=== PATIENT | male | born 1990 | race Caucasian/White ===

== ENCOUNTER 2021-10-30 18:30 | Emergency (ER) | payer SELFPAY ==
--- NOTE | 2021-10-30 20:47 | XRay Report ---
CHEST 2 VIEWS INDICATION / CLINICAL INFORMATION: SOB. COMPARISON: None available. FINDINGS: SUPPORT DEVICES: None. HEART / MEDIASTINUM: No significant abnormality. LUNGS / PLEURA: No significant pulmonary or pleural abnormality. No pneumothorax. ADDITIONAL FINDINGS: No significant additional findings. IMPRESSION: 1. No acute findings. Signer Name: Vaibhav Delatorre MD Signed: 10/30/2021 8:43 PM Workstation Name: [id number]
[2021-10-30 21:04] LABS: Basophils # (Auto) 0.3 K/mm3 (0.0-0.1); Basophils % (Auto) 2.9 % (0.0-1.8); Eosinophils # (Auto) 0.3 K/mm3 (0.0-0.4); Eosinophils % (Auto) 2.9 % (0.0-4.3); Hematocrit 42.5 % (35.5-45.6); Lymphocytes # (Auto) 2.8 K/mm3 (1.2-5.4); Lymphocytes % (Auto) 26.5 % (13.4-35.0); Mean Corpuscular HGB Conc 33 % (32-34); Mean Corpuscular Volume 83 fl (84-94); Monocytes # (Auto) 0.9 K/mm3 (0.0-0.8); Monocytes % (Auto) 8.1 % (0.0-7.3); Platelet Count 338 K/mm3 (140-440); Red Blood Count 5.13 M/mm3 (3.65-5.03); Red Cell Distribution Width 15.3 % (13.2-15.2)
[2021-10-30 21:24] LABS: Alanine Aminotransferase 24 units/L (7-56); BUN/Creatinine Ratio 17; Blood Urea Nitrogen 15 mg/dL (9-20); Calcium 9.5 mg/dL (8.4-10.2); Hemolysis Index 33
[2021-10-30] MEDS ORDERED: methylPREDNISolone Sod Succinate 125 MG/2 ML INJ IM ONE (21:24)
[2021-10-30] MEDS ORDERED: IPRATROPIUM/ALBUTEROL SULFATE 3 ML AMPUL.NEB IH ONE (21:24)
[2021-10-30] MEDS ORDERED: predniSONE 20 MG TAB PO ONE (22:17)
--- NOTE | 2021-10-30 22:31 | Emergency Department Report ---
- General Chief Complaint: Adult Asthma Stated Complaint: ASTHMA Source: patient Mode of arrival: Ambulatory Limitations: No Limitations - History of Present Illness Initial Comments: Patient is a 31-year-old male with a history of asthma who presented to the ED with complaint of acute onset persistent nasal and sinus congestion, persistent frontal sinus pressure, persistent dry cough, shortness of breath and wheezing for the last 2 weeks intermittently despite using his inhaler at home. Patient also states that in the last 12 hours his symptoms have worsened and decided come to the ED for evaluation. Patient denies chest pain, dizziness, syncope, fever, chills, nausea and vomiting or diarrhea and abdominal pain and sore throat. MD Complaint: cough, rhinorrhea, nasal congestion, other (Wheezing and shortness of breath) -: Sudden, week(s) (2) Severity: moderate Severity scale (0 -10): 3 Quality: dull, aching Consistency: intermittent Improves With: nothing Worsens With: activity, deep breaths Associated Symptoms: denies other symptoms, headache, rhinorrhea, nasal c ongestion, cough, shortness of breath. denies: fever, chills, myalgias, diaphoresis, sore throat, stiff neck, chest pain, abdominal pain, nausea, vomiting, diarrhea, dysuria, rash, right sweats, weight loss, epistaxis, hoarseness, ear pain Treatments Prior to Arrival: none - Related Data Previous Rx's Medication Instructions Recorded Last Taken Type Albuterol Sulfate [Proventil Hfa] 1 - 2 puff IH Q6H PRN #1 hfa.aer.ad 10/30/21 Unknown Rx Benzonatate [Tessalon Perles] 100 mg PO Q8HR #30 capsule 10/30/21 Unknown Rx Cetirizine HCl [Zyrtec 10mg tab] 10 mg PO DAILY #30 tablet 10/30/21 Unknown Rx Montelukast [Singulair] 10 mg PO QPM #30 tablet 10/30/21 Unknown Rx Prednisone [predniSONE 10 mg 10 mg PO .TAPER #1 tab.ds.pk 10/30/21 Unknown Rx (6-Day Pack, 21 Tabs)] Allergies Allergy/AdvReac Type Severity Reaction Status Date / Time FLU SHOT Allergy Shortness Uncoded 10/30/21 18:31 of Breath ED Review of Systems ROS: Stated complaint: ASTHMA Other details as noted in HPI Constitutional: denies: chills, fever Eyes: denies: eye pain, eye discharge, vision change ENT: congestion. denies: ear pain, throat pain Respiratory: cough, shortness of breath, wheezing Cardiovascular: denies: chest pain, palpitations, dyspnea on exertion, orthopnea, edema, syncope, paroxysmal nocturnal dyspnea Endocrine: no symptoms reported Gastrointestinal: denies: abdominal pain, nausea, vomiting, diarrhea Genitourinary: denies: urgency, dysuria, frequency, hematuria, testicular pain, testicular mass Musculoskeletal: denies: back pain, joint swelling, arthralgia Skin: denies: rash, lesions Neurological: denies: headache, weakness, paresthesias Psychiatric: denies: anxiety, depression Hematological/Lymphatic: denies: easy bleeding, easy bruising ED Past Medical Hx - Past Medical History Hx Asthma: Yes - Surgical History Past Surgical History?: No - Medications Home Medications: Home Medications Medication Instructions Recorded Confirmed Last Taken Type Albuterol Sulfate [Proventil Hfa] 1 - 2 puff IH Q6H PRN #1 hfa.aer.ad 10/30/21 Unknown Rx Benzonatate [Tessalon Perles] 100 mg PO Q8HR #30 capsule 10/30/21 Unknown Rx Cetirizine HCl [Zyrtec 10mg tab] 10 mg PO DAILY #30 tablet 10/30/21 Unknown Rx Montelukast [Singulair] 10 mg PO QPM #30 tablet 10/30/21 Unknown Rx Prednisone [predniSONE 10 mg 10 mg PO .TAPER #1 tab.ds.pk 10/30/21 Unknown Rx (6-Day Pack, 21 Tabs)] ED Physical Exam - General Limitations: No Limitations General appearance: alert, in no apparent distress - Head Head exam: Present: atraumatic, normocephalic, normal inspection - Eye Eye exam: Present: normal appearance, PERRL, EOMI Pupils: Present: normal accommodation - ENT ENT exam: Present: normal exam, normal orophraynx, mucous membranes moist, TM's normal bilaterally, normal external ear exam - Neck Neck exam: Present: normal inspection, full ROM - Respiratory Respiratory exam: Present: wheezes (Mildly diffuse coarse wheezes throughout). Absent: respiratory distress, rales, rhonchi, chest wall tenderness, accessory muscle use, prolonged expiratory - Cardiovascular Cardiovascular Exam: Present: normal rhythm, tachycardia, normal heart sounds. Absent: systolic murmur, diastolic murmur, rubs, gallop - GI/Abdominal GI/Abdominal exam: Present: soft, normal bowel sounds. Absent: tenderness, guarding, rebound, rigid, hyperactive bowel sounds, hypoactive bowel sounds - Extremities Exam Extremities exam: Present: normal inspection, full ROM, normal capillary refill - Back Exam Back exam: Present: normal inspection, full ROM. Absent: tenderness, CVA tenderness (L), muscle spasm, paraspinal tenderness - Neurological Exam Neurological exam: Present: alert, oriented X3, CN II-XII intact, normal gait, reflexes normal - Psychiatric Psychiatric exam: Present: normal affect, normal mood - Skin Skin exam: Present: warm, dry, intact, normal color. Absent: rash ED Course Vital Signs 10/30/21 10/30/21 10/30/21 18:33 22:57 22:59 Temperature 98.2 F 97.9 F 97.9 F Pulse Rate 113 H 95 H 95 H Respiratory 18 19 19 Rate Blood Pressure 146/98 Blood Pressure 112/78 112/58 [Left] O2 Sat by Pulse 97 97 95 Oximetry ED Medical Decision Making - Lab Data Result diagrams: 10/30/21 20:40 10/30/21 20:40 - Radiology Data Radiology results: report reviewed, [place] [address] XRay Report Signed Patient: QUINCY VERAS MR#: [id number] 8 : 1990 Acct:[id number] Age/Sex: 31 / M ADM Date: 10/30/21 Loc: ED Attending Dr: Ordering Physician: ED MD ARTURO Date of Service: 10/30/21 Procedure(s): XR chest routine 2V Accession Number(s): [id number] cc: ED MD ARTURO Fluoro Time In Minutes: CHEST 2 VIEWS INDICATION / CLINICAL INFORMATION: SOB. COMPARISON: None available. FINDINGS: SUPPORT DEVICES: None. HEART / MEDIASTINUM: No significant abnormality. LUNGS / PLEURA: No significant pulmonary or pleural abnormality. No pneumothorax. ADDITIONAL FINDINGS: No significant additional findings. IMPRESSION: 1. No acute findings. Signer Name: Vaibhav Delatorre MD Signed: 10/30/2021 8:43 PM Workstation Name: [id number] Transcribed By: TL Dictated By: Vaibhav Delatorre MD Electronically Authenticated By: Vaibhav Delatorre MD Signed Date/Time: 10/30/212042 DD/ 42 TD/TT: - Medical Decision Making This is a 31-year-old male with a history of asthma who presented to the ED with complaint of acute onset persistent nasal and sinus congestion, persistent frontal sinus pressure, persistent dry cough, shortness of breath and wheezing for the last 2 weeks intermittently despite using his inhaler at home. Patient also states that in the last 12 hours his symptoms have worsened and decided come to the ED for evaluation. In the ED, patient is alert and oriented x3 and is not in any distress. Patient was treated in the ED with steroids and nebuliz ers. Chest x-ray showed no acute cardiopulmonary abnormalities or pneumonitis. On reevaluation, patient felt better and was discharged home on medications. Patient was advised to follow-up with his primary care physician in 5 to 7 days for reevaluation or return to the ED immediately if symptoms get worse. - Differential Diagnosis Asthma; bronchitis; pneumonia; URI; sinusitis Critical care attestation.: If time is entered above; I have spent that time in minutes in the direct care of this critically ill patient, excluding procedure time. ED Disposition Clinical Impression: Acute bronchitis with asthma with acute exacerbation, Acute upper respiratory infection Disposition: 01 HOME / SELF CARE / HOMELESS Is pt being admited?: No Does the pt Need Aspirin: No Condition: Stable Instructions: Cough, Adult, [id number], Acute Bronchitis, Adult, [id number], Upper Respiratory Infection, Adult, [id number], Asthma, Adult, [id number] Additional Instructions: Chest x-ray showed no acute cardiopulmonary abnormalities or pneumonitis. Lab test results were reviewed and are all nonactionable. Therefore take medications as advised, drink plenty of fluids and follow-up with your primary care physician in 7 to 10 days for reevaluation. Return to the ED immediately if symptoms get worse. Prescriptions: Prednisone [predniSONE 10 mg (6-Day Pack, 21 Tabs)] 10 mg PO .TAPER #1 tab.ds.pk Albuterol Sulfate [Proventil Hfa] 1 - 2 puff IH Q6H PRN #1 hfa.aer.ad PRN Reason: Shortness Of Breath Montelukast [Singulair] 10 mg PO QPM #30 tablet Benzonatate [Tessalon Perles] 100 mg PO Q8HR #30 capsule Cetirizine HCl [Zyrtec 10mg tab] 10 mg PO DAILY #30 tablet Referrals: DONN SHEEHAN MD [Staff Physician] - 3-5 Days Time of Disposition: 22:39 Print Language: BENGALI
[2021-10-30 23:00] VITALS: BP 112/58
== END 2021-10-30 19:30 | disposition home or self-care (01) ==
LOC: ED 18:30
DX: J45.901 Unspecified asthma with (acute) exacerbation (principal); J06.9 Acute upper respiratory infection, unspecified; Z88.8 Allergy status to other drugs, medicaments and biological substances; Z79.899 Other long term (current) drug therapy
CPT/HCPCS: 36415; 71046; 80053; 85025; 94640; 99284; J2930; J7512